=== PATIENT | female | born 1975 | race Caucasian/White ===

== ENCOUNTER 2019-01-10 21:26 | Emergency (ER) | payer BC ==
[2019-01-10] MEDS ORDERED: ASPIRIN 81 MG CHEWABLE TABLET PO ONE (21:30)
--- NOTE | 2019-01-10 21:45 | Emergency Department Record ---
History of Present Illness - General Chief Complaint: Chest Pain Stated Complaint: CHEST PAIN/RT ARM/NECK NUMBNESS Time Seen by Provider: 01/10/19 21:30 Source: Patient Mode of Arrival: Ambulatory Limitations: No limitations - History of Present Illness Initial Comments: 43 yo female presents to ED for evaluation of "chest pressure" that began this afternoon, reports that her pain symptoms have been constant, denies any factors that worsen or improve her pain symptoms. Patient denies fevers, chills, or productive cough symptoms. Patient denies previous heart or lung problems, denies calf pain/swelling, or history of DVT. Patient does report a history of hyperthyroidism. MD Complaint: Chest pain Onset/Timin -: Hour(s) Onset: During exertion Pain Location: Right chest Pain Radiation: Back Severity: Moderate Severity scale (1-10): 7 Consistency: Constant Improves With: Nothing Worsens With: Exertion Treatments Prior to Arrival: None - Related Data Home Medications Medication Instructions Recorded Confirmed Last Taken Levothyroxine Sodium [Synthroid] 150 mcg PO DAILY 01/10/19 01/10/19 Unknown Omeprazole 20 mg PO DAILY 01/10/19 01/10/19 Unknown Allergies Allergy/AdvReac Type Severity Reaction Status Date / Time No Known Drug Allergies Allergy Verified 01/10/19 23:39 Travel Screening - Travel/Exposure Within Last 30 Days Have you traveled within the last 30 days?: No - Travel Symptoms Symptom Screening: None Review of Systems Constitutional: Denies: Chills, Fever, Malaise, Night sweats Eyes: Denies: Eye discharge, Eye pain ENT: Denies: Congestion, Ear pain, Epistaxis Respiratory: Denies: Cough, Dyspnea Cardiovascular: Reports: Chest pain. Denies: Dyspnea on exertion, Edema Endocrine: Denies: Fatigue, Heat or cold intolerance Gastrointestinal: Denies: Abdominal pain, Nausea, Vomiting Genitourinary: Denies: Incontinence, Retention Musculoskeletal: Denies: Arthralgia, Back pain Skin: Denies: Bruising, Change in color Neurological: Denies: Abnormal gait, Confusion, Headache, Seizure Psychiatric: Denies: Anxiety Hematological/Lymphatic: Denies: Anemia, Blood Clots Past Medical History - SOCIAL HISTORY Smoking Status: Never smoker Alcohol Use: None Drug Use: None - RESPIRATORY Hx Respiratory Disorders: No - CARDIOVASCULAR Hx Cardio Disorders: No - NEURO Hx Neuro Disorders: No - GI Hx GI Disorders: Yes Hx Irritable Bowel: Yes - Hx Genitourinary Disorders: No - ENDOCRINE Hx Endocrine Disorders: Yes Hx Thyroid Disease: Yes - MUSCULOSKELETAL Hx Musculoskeletal Disorders: No - PSYCH Hx Psych Problems: No - HEMATOLOGY/ONCOLOGY Hx Hematology/Oncology Disorders: No Family Medical History Any Significant Family History?: Yes Hx Cancer: Father Hx Diabetes: Father Physical Exam - General General Appearance: Alert, Oriented x3, Cooperative, No acute distress Limitations: No limitations - Head Head exam: Atraumatic, Normocephalic, Normal inspection Head exam detail: negative: Abrasion, Contusion, De Los Santos's sign, General tenderness, Hematoma, Laceration - Eye Eye exam: Normal appearance. negative: Conjunctival injection, Periorbital swelling, Periorbital tenderness, Scleral icterus - ENT Ear exam: negative: Auricular hematoma, Auricular trauma Nasal Exam: negative: Active bleeding, Discharge, Dried blood, Foreign body Mouth exam: negative: Drooling, Laceration, Muffled voice, Tongue elevation - Neck Neck exam: Normal inspection. negative: Meningismus, Tenderness - Respiratory Respiratory exam: Normal lung sounds bilaterally. negative: Rales, Respiratory distress, Rhonchi, Stridor - Cardiovascular Cardiovascular Exam: Regular rate, Normal rhythm, Normal heart sounds - GI/Abdominal GI/Abdominal exam: Soft. negative: Rebound, Rigid, Tenderness - Rectal Rectal exam: Deferred - exam: Deferred - Extremities Extremities exam: Normal inspection. negative: Pedal edema, Tenderness - Back Back exam: Denies: CVA tenderness (R), CVA tenderness (L) - Neurological Neurological exam: Alert, Normal gait, Oriented X3 - Psychiatric Psychiatric exam: Normal affect, Normal mood - Skin Skin exam: Normal color. negative: Abrasion Type of lesion: negative: abrasion Course Vital Signs 01/10/19 21:33 Temperature 97.7 F Pulse Rate [ 74 Pulse Ox Probe] Respiratory 20 Rate Blood Pressure 159/93 [Left Arm] Pulse Ox 97 - Reevaluation(s) Reevaluation #1: 01/10/19 21:44 EKG: NSR 73 Normal axis, normal intervals No acute ST-T wave changes present PERC clinical decision rule was applied, and the patient does not have any of the following: -Age > 50 years -Pulse > 100 -Oxygen Saturation < 94% -History of Hemoptysis -Unilateral leg swelling -History or PE/DVT -Recent surgery or Trauma -Oral contraceptive/Hormone use Reevaluation #2: 01/10/19 22:11 Laboratory studies were reviewed and are grossly unremarkable for an acute process. CXR: No acute process The patient was deemed to be low-risk for cardiac disease based on the patients history and evaluation in the ED, HEART Score was applied and found to be 0. As a result, repeat Troponin in 3-hours appears appropriate and if negative for myocardial injury, the patient may be discharged home with appropriate outpatient follow-up for further evaluation. Reevaluation #3: 01/11/19 00:37 2nd Troponin drawn, patient resting comfortably at this time, denies any needs at this time. Reevaluation #4: 01/11/19 00:50 Repeat Troponin is negative. All results were again reviewed with the patient, all questions were answered. Patient appears stable for discharge at this time. Medical Decision Making - Lab Data Result diagrams: 01/10/19 21:35 01/10/19 21:35 Disposition Disposition: Discharge Clinical Impression: Atypical chest pain Disposition: Home, Self-Care Condition: (2) Stable Instructions: Chest Pain (ED) Additional Instructions: Return to ED if your symptoms worsen or if you have any concerns. Ibuprofen as directed. Follow-up with your family doctor in 3-5 days as directed. Forms: Patient Portal Access Time of Disposition: 00:51 Quality - Quality Measures Quality Measures: N/A - Blood Pressure Screening Does Patient Have Any of the Following: No Blood Pressure Classification: Hypertensive Reading Systolic Measurement: 138 Diastolic Measurement: 92 Screening for High Blood Pressure: < First Hypertensive BP, F/U Documented > [G8950] First Hypertensive Follow-up Interventions: Referral to alternative/primary care provider.
[2019-01-10 21:48] LABS: ABSOLUTE NEUTROPHIL COUNT 4.65; BASO % 0.4 % (0-6); EOS % 2.6 % (0-6); GRAN % 45.2 % (47-80); HEMATOCRIT 43.6 % (35.0-47.0); HEMOGLOBIN 14.3 gm/dl (11.6-16.0); LYMPH % 43.7 % (16-45); MEAN CELL VOLUME 93.2 fl (81-97); MEAN CORPUSCULAR HEMOGLOBIN 30.6 pg (27-33); MEAN CORPUSCULAR HGB CONC 32.8 g/dl (32-36); MONO % 8.1 % (0-9); PLATELET COUNT 284 K/uL (130-400); RED BLOOD COUNT 4.68 M/uL (3.80-5.40); RED CELL DISTRIBUTION WIDTH 12.1 % (11.5-14.5); WHITE BLOOD COUNT W/O DIFF 10.3 K/uL (4.2-12.2)
[2019-01-10 21:56] LABS: BLOOD UREA NITROGEN 13 mg/dL (6-20)
[2019-01-10 21:57] LABS: CREATININE 0.7 mg/dL (0.5-0.9); EST GLOMERULAR FILTRATION RATE > 60 mL/min; TOTAL PROTEIN 7.9 g/dL (6.6-8.7)
[2019-01-10 21:59] LABS: GLUCOSE,RANDOM 106 mg/dL (74-109)
[2019-01-10 22:02] LABS: ALB/GLOB RATIO 1.4 (1.1-1.8); ALBUMIN 4.6 g/dL (4.0-5.0); ALKALINE PHOSPHATASE 105 U/L (35-104); ALT/SGPT 43 U/L (<33); AST/SGOT 24 U/L (10.0-35.0)
== END 2019-01-11 01:00 | disposition home or self-care (01) ==
LOC: ER 21:26
DX: R07.89 Other chest pain (principal); R20.0 Anesthesia of skin
CPT/HCPCS: 71046; 80053; 84484; 85025; 93005; 93010; 99284